=== PATIENT | female | born 1985 | race Caucasian/White ===

== ENCOUNTER 2019-06-02 05:46 | Inpatient (IN) ==
[2019-06-02] MEDS ORDERED: ceFAZolin 3,000 MG in SYRINGE 1 EACH IV ONE (05:55)
[2019-06-02] MEDS ORDERED: CITRIC ACID/SODIUM CITRATE 30 ML UDCUP PO ONE (05:55)
[2019-06-02] MEDS ORDERED: FAMOTIDINE 20 MG/2 ML VIAL IV ONE (05:55)
[2019-06-02] MEDS ORDERED: LACTATED RINGERS 1,000 ML IV SCH (06:00)
[2019-06-02 06:17] LABS: Basophils # 0.1 10*3/uL (0.0-0.2); Basophils % 0.5 % (0.0-0.8); Eosinophils # 0.3 10*3/uL (0.0-0.87); Eosinophils % 2.1 % (0.00-10.9); Hematocrit 31.4 VOL% (35.7-47.0); Hemoglobin 11.2 GM/DL (12.0-16.0); Immature Granulocytes % 1.1 %; Immature Granulocytes Absolute 0.14 #; Lymphocytes # 1.2 10*3/uL (1.4-4.0); Lymphocytes % 9.8 % (21.3-54.2); Mean Corpuscular HGB Conc 35.7 GM/DL (32-36); Mean Corpuscular Volume 90.8 FL (87-102); Mean Platelet Volume 11.6 FL (9.6-12.0); Neutrophils % 76.5 % (38.7-73.9); Platelet Count 173 T/CUMM (130-400); Red Blood Count 3.46 MC/CUMM (3.8-5.5); Red Cell Distribution Width 13.1 % (9.3-17.3); White Blood Count 12.6 T/CUMM (4-12)
[2019-06-02 06:22] LABS: Apearance,Urine CLEAR (Clear); Bacteria,Urine Occasional /HPF (Few); Bilirubin,Urine Negative (Negative); Blood, Urine Negative (Negative); Glucose,Urine (UA) Negative (Negative); Ketones,Urine Negative (Negative); Mucus,Urine Occasional /LPF (Occasional); Nitrite,Urine Negative (Negative); Protein,Urine Negative; RBC,Urine 1 /HPF (0-4); Squamous Epithelial Cell,Urine Occasional /HPF (0-10); Urine Color Yellow (Yellow); Urine Specific Gravity 1.008 (1.001-1.035); Urine Urobilinogen < 2.0 EU/DL (0.2-1.0); WBC,Urine 1 /HPF (0-6)
[2019-06-02] MEDS ORDERED: guaiFENesin 200 MG/10 ML UDCUP ONE (06:34)
[2019-06-02] MEDS ORDERED: ALBUTEROL 2.5 MG/3 ML NEB RESP TX ONE (06:38)
[2019-06-02] MEDS ORDERED: INFLUENZA VIRUS VACCINE 0.5 ML SYRINGE IM ONE (06:38)
[2019-06-02] MEDS: guaiFENesin 200 MG/10 ML UDCUP PO PRN ×3 (06:59→23:49)
[2019-06-02 07:22] LABS: Barbiturates Screen,Urine Negative (Negative); Benzodiazepines Screen,Urine Negative (Negative); Cannabinoid Screen,Urine Negative (Negative); Opiate Screen,Urine Positive (Negative); Phencyclidine Screen,Urine Negative (Negative)
[2019-06-02] MEDS ORDERED: BUPIVACAINE SPINAL 0.75% 2 ML AMP SPINAL ONE (07:33)
[2019-06-02] MEDS ORDERED: ACETAMINOPHEN 1,000 MG/100 ML VIAL IV ONE (07:33)
[2019-06-02] MEDS ORDERED: MORPHINE 10 MG/10 ML VIAL ONE (07:33)
[2019-06-02] MEDS ORDERED: fentaNYL 100 MCG/2 ML VIAL ONE (07:33)
[2019-06-02] MEDS ORDERED: ONDANSETRON 4 MG/2 ML VIAL ONE (07:33)
[2019-06-02] MEDS ORDERED: KETOROLAC 30 MG/1 ML VIAL ONE (07:33)
[2019-06-02] MEDS ORDERED: OXYTOCIN/LR 20 UNIT/1,000 ML BAG IV ONE (07:42)
[2019-06-02] MEDS ORDERED: miSOPROStoL 200 MCG TABLET ONE (07:42)
[2019-06-02] MEDS ORDERED: TRANEXAMIC ACID 1,000 MG/10 ML VIAL ONE (07:42)
[2019-06-02] MEDS ORDERED: METHYLERGONOVINE 0.2 MG/1 ML AMP ONE (07:43)
[2019-06-02] MEDS ORDERED: CARBOPROST TROMETHAMINE 250 MCG/ML AMP IM ONE (07:43)
[2019-06-02] MEDS ORDERED: OXYTOCIN/LR 30 UNIT/1,000 ML BAG IV ONE (07:44)
[2019-06-02] MEDS ORDERED: OXYTOCIN 10 UNIT/ML VIAL IM ONE (07:44)
[2019-06-02 09:26] LABS: Cord Venous Blood HCO3 27.8 MMOL/L; Cord Venous Blood PCO2 51.9 MMHG; Cord Venous Blood PO2 24.5 MMHG
[2019-06-02 09:28] LABS: Apearance,Urine CLEAR (Clear); Bilirubin,Urine Negative (Negative); Blood, Urine Negative (Negative); Glucose,Urine (UA) Negative (Negative); Ketones,Urine Negative (Negative); Mucus,Urine Occasional /LPF (Occasional); Nitrite,Urine Negative (Negative); Protein,Urine Negative; RBC,Urine 1 /HPF (0-4); Squamous Epithelial Cell,Urine Occasional /HPF (0-10); Urine Color Straw (Yellow); Urine Specific Gravity 1.006 (1.001-1.035); Urine Urobilinogen < 2.0 EU/DL (0.2-1.0); WBC,Urine 2 /HPF (0-6)
[2019-06-02] MEDS ORDERED: ONDANSETRON 4 MG/2 ML VIAL IV PRN (09:38)
[2019-06-02] MEDS ORDERED: hydrOXYzine HCL 25 MG/1 ML VIAL IM PRN (09:38)
[2019-06-02] MEDS ORDERED: diphenhydrAMINE 50 MG/1 ML VIAL IV PRN (09:38)
[2019-06-02] MEDS ORDERED: HYDROmorphone 2 MG/1 ML VIAL IV PRN (09:38)
[2019-06-02] MEDS ORDERED: ALBUTEROL 2.5 MG/3 ML NEB RESP TX PRN (11:00)
[2019-06-02] MEDS: ceFAZolin 1,000 MG in SYRINGE 1 EACH IV SCH (17:26)
[2019-06-02] MEDS: oxyCODONE/ACETAMINOPHEN 5-325 MG TABLET PO PRN ×2 (17:26→23:39)
[2019-06-02 17:27] LABS: Basophils # 0.1 10*3/uL (0.0-0.2); Basophils % 0.4 % (0.0-0.8); Eosinophils # 0.1 10*3/uL (0.0-0.87); Eosinophils % 0.6 % (0.00-10.9); Hematocrit 30.3 VOL% (35.7-47.0); Hemoglobin 10.6 GM/DL (12.0-16.0); Immature Granulocytes % 0.8 %; Immature Granulocytes Absolute 0.12 #; Lymphocytes # 1.2 10*3/uL (1.4-4.0); Lymphocytes % 8.5 % (21.3-54.2); Mean Corpuscular Volume 92.7 FL (87-102); Mean Platelet Volume 11.9 FL (9.6-12.0); Neutrophils % 80.7 % (38.7-73.9); Platelet Count 155 T/CUMM (130-400); Red Blood Count 3.27 MC/CUMM (3.8-5.5); White Blood Count 14.2 T/CUMM (4-12)
[2019-06-02] MEDS: ALBUTEROL 2.5 MG/3 ML NEB RESP TX SCH (20:44)
[2019-06-02] MEDS ORDERED: MAGNESIUM HYDROXIDE SUSP 30 ML UDCUP PO SCH (22:00)
[2019-06-02] MEDS ORDERED: METOCLOPRAMIDE 10 MG TABLET PO SCH (22:00)
[2019-06-02] MEDS: DOCUSATE SODIUM 100 MG CAPSULE PO SCH (22:12)
[2019-06-02] MEDS: IBUPROFEN 800 MG TABLET PO PRN (22:23)
[2019-06-03] MEDS: ALBUTEROL 2.5 MG/3 ML NEB RESP TX SCH ×4 (00:47→21:28)
[2019-06-03] MEDS: ceFAZolin 1,000 MG in SYRINGE 1 EACH IV SCH (01:02)
[2019-06-03 05:14] LABS: Basophils % 0.3 % (0.0-0.8); Eosinophils # 0.1 10*3/uL (0.0-0.87); Eosinophils % 0.6 % (0.00-10.9); Hematocrit 25.9 VOL% (35.7-47.0); Immature Granulocytes % 0.7 %; Immature Granulocytes Absolute 0.07 #; Lymphocytes % 9.2 % (21.3-54.2); Mean Corpuscular HGB Conc 34.7 GM/DL (32-36); Mean Corpuscular Volume 91.5 FL (87-102); Mean Platelet Volume 11.8 FL (9.6-12.0); Monocytes % 10.4 % (1.7-12.7); Neutrophils % 78.8 % (38.7-73.9); Platelet Count 149 T/CUMM (130-400); Red Blood Count 2.83 MC/CUMM (3.8-5.5); White Blood Count 10.7 T/CUMM (4-12)
[2019-06-03] MEDS: IBUPROFEN 800 MG TABLET PO PRN ×2 (07:59→15:17)
[2019-06-03] MEDS: oxyCODONE/ACETAMINOPHEN 5-325 MG TABLET PO PRN ×3 (08:01→20:55)
[2019-06-03] MEDS: MAGNESIUM HYDROXIDE SUSP 30 ML UDCUP PO SCH ×2 (09:38→20:53)
[2019-06-03] MEDS: SIMETHICONE CHEW 80 MG TABLET PO PRN (09:38)
[2019-06-03] MEDS: METOCLOPRAMIDE 10 MG TABLET PO SCH ×3 (09:38→23:53)
[2019-06-03] MEDS: DOCUSATE SODIUM 100 MG CAPSULE PO SCH ×2 (09:38→20:53)
[2019-06-03] MEDS: FLUTICASONE 50 MCG NASAL SPRAY 16 GM BOTTLE BOTH NARES SCH (10:24)
[2019-06-03 11:05] LABS: Barbiturates Screen,Urine Negative (Negative); Benzodiazepines Screen,Urine Negative (Negative); Cannabinoid Screen,Urine Negative (Negative); Opiate Screen,Urine Positive (Negative); Phencyclidine Screen,Urine Negative (Negative)
[2019-06-03] MEDS ORDERED: AZITHROMYCIN 250 MG TABLET PO ONE (21:00)
[2019-06-04] MEDS: ALBUTEROL 2.5 MG/3 ML NEB RESP TX SCH ×4 (01:26→19:45)
[2019-06-04] MEDS: oxyCODONE/ACETAMINOPHEN 5-325 MG TABLET PO PRN ×4 (04:02→23:20)
[2019-06-04] MEDS: SIMETHICONE CHEW 80 MG TABLET PO PRN (08:00)
[2019-06-04] MEDS: MAGNESIUM HYDROXIDE SUSP 30 ML UDCUP PO SCH ×2 (08:00→20:45)
[2019-06-04] MEDS: METOCLOPRAMIDE 10 MG TABLET PO SCH ×3 (08:01→23:20)
[2019-06-04] MEDS: AZITHROMYCIN 250 MG TABLET PO SCH (08:01)
[2019-06-04] MEDS: IBUPROFEN 800 MG TABLET PO PRN ×2 (09:14→16:48)
[2019-06-04 10:09] LABS: Basophils % 0.3 % (0.0-0.8); Eosinophils # 0.2 10*3/uL (0.0-0.87); Eosinophils % 1.4 % (0.00-10.9); Hematocrit 27.2 VOL% (35.7-47.0); Hemoglobin 9.3 GM/DL (12.0-16.0); Immature Granulocytes % 1.1 %; Immature Granulocytes Absolute 0.14 #; Lymphocytes # 0.9 10*3/uL (1.4-4.0); Lymphocytes % 7.1 % (21.3-54.2); Mean Corpuscular HGB Conc 34.2 GM/DL (32-36); Mean Corpuscular Volume 92.8 FL (87-102); Mean Platelet Volume 12.2 FL (9.6-12.0); Monocytes % 9.3 % (1.7-12.7); Neutrophils % 80.8 % (38.7-73.9); Platelet Count 172 T/CUMM (130-400); Red Blood Count 2.93 MC/CUMM (3.8-5.5); Red Cell Distribution Width 13.1 % (9.3-17.3); White Blood Count 12.3 T/CUMM (4-12)
[2019-06-04] MEDS: FERROUS SULFATE 325 MG TABLET PO SCH ×2 (17:07→20:45)
[2019-06-04] MEDS: FLUTICASONE 50 MCG NASAL SPRAY 16 GM BOTTLE BOTH NARES SCH (18:10)
[2019-06-04] MEDS: DOCUSATE SODIUM 100 MG CAPSULE PO SCH ×2 (18:17→20:45)
[2019-06-05] MEDS: ALBUTEROL 2.5 MG/3 ML NEB RESP TX SCH ×2 (00:15→07:58)
[2019-06-05] MEDS: oxyCODONE/ACETAMINOPHEN 5-325 MG TABLET PO PRN (07:55)
[2019-06-05] MEDS: IBUPROFEN 800 MG TABLET PO PRN (07:55)
[2019-06-05 08:47] VITALS: BP 128/66
[2019-06-05] MEDS: METOCLOPRAMIDE 10 MG TABLET PO SCH (09:07)
[2019-06-05] MEDS: SIMETHICONE CHEW 80 MG TABLET PO PRN (09:07)
[2019-06-05] MEDS: DOCUSATE SODIUM 100 MG CAPSULE PO SCH (09:07)
[2019-06-05] MEDS: FERROUS SULFATE 325 MG TABLET PO SCH (09:07)
[2019-06-05] MEDS: MAGNESIUM HYDROXIDE SUSP 30 ML UDCUP PO SCH (09:08)
[2019-06-05] MEDS: AZITHROMYCIN 250 MG TABLET PO SCH (09:08)
== END 2019-06-05 11:30 | disposition home or self-care (01) | DRG 540 ==
LOC: N.LD 05:46 → N.OB 12:24
PROVIDERS: ADMIT Obstetrics & Gynecology; ATTEND Obstetrics & Gynecology